=== PATIENT | female | born 2000 | race Hispanic/Latino ===

== ENCOUNTER 2018-01-04 13:59 | Emergency (ER) | payer MEDICAID ==
[2018-01-04] MEDS ORDERED: LORAZEPAM 2 MG/ML 1 ML VIAL ONE (15:00)
[2018-01-04 15:17] LABS: BASOPHILS % (AUTO) 0.9 % (0.0-5.0); EOSINOPHILS % (AUTO) 1.5 % (0.0-8.0); LYMPHOCYTES % (AUTO) 29.4 % (21.0-51.0); MEAN CORPUSCULAR HEMOGLOBIN 26.8 pg (27.0-33.0); MEAN CORPUSCULAR HGB CONC 33.2 g/dL (32.0-36.0); MEAN CORPUSCULAR VOLUME 80.6 fL (80-100); MONOCYTES % (AUTO) 6.2 % (3.0-13.0); PLATELET COUNT (AUTO) 466 K/uL (130-400); RED BLOOD CELL COUNT(AUTO) 4.97 MIL/uL (4.00-5.50); RED CELL DISTRIBUTION WIDTH 13.6 % (11.0-15.5); WHITE BLOOD COUNT (AUTO) 10.8 K/uL (4.8-10.8)
[2018-01-04 15:25] LABS: CREATININE 0.7 mg/dL (0.5-1.5)
[2018-01-04 15:30] LABS: ALBUMIN 3.6 g/dL (3.5-5.0); BILIRUBIN,TOTAL 0.2 mg/dL (0.2-1.0); TOTAL PROTEIN, SERUM 7.7 g/dL (6.0-8.3)
[2018-01-04 15:32] LABS: RAPID GROUP A STREP NEGATIVE (NEGATIVE)
[2018-01-04 15:57] LABS: BILIRUBIN,URINE Negative (NEGATIVE); COLOR,URINE Yellow (YELLOW); GLUCOSE, URINE (UA) Negative (NEGATIVE); KETONES,URINE Negative (NEGATIVE); LEUKOCYTE ESTERASE ,URINE Small (NEGATIVE); NITRATE,URINE Negative (NEGATIVE); OCCULT BLOOD,URINE Negative (NEGATIVE); PROTEIN,URINE Negative (NEGATIVE)
[2018-01-04 15:58] LABS: APPEARANCE,URINE CLOUDY (CLEAR)
[2018-01-04 16:05] LABS: AMPHET/METH SCREEN,URINE NEGATIVE (NEGATIVE); BARBITURATE SCREEN, URINE NEGATIVE (NEGATIVE); BENZODIAZEPINES SCREEN,URINE NEGATIVE (NEGATIVE); CANNABINOID SCREEN,URINE NEGATIVE (NEGATIVE); COCAINE SCREEN,URINE NEGATIVE (NEGATIVE); OPIATE SCREEN,URINE NEGATIVE (NEGATIVE); PHENCYCLIDINE SCREEN,URINE NEGATIVE (NEGATIVE)
[2018-01-04 16:08] LABS: HCG,QUAL RESULT NEGATIVE (NEGATIVE)
[2018-01-04 16:36] LABS: BACTERIA,URINE Few /HPF (None Seen); MUCUS,URINE Rare LPF (None Seen); RBC,URINE 0-1 /HPF (0-1); SQUAMOUS EPITHELIAL CELL,UR Few /LPF (0-2)
[2018-01-04 16:37] LABS: AMORPHOUS SEDIMENT,UR Few /LPF (None Seen)
== END 2018-01-04 16:27 | disposition home or self-care (01) ==
LOC: EDH 13:59
DX: R25.1 Tremor, unspecified (principal)
CPT/HCPCS: 36415; 80053; 80305; 81001; 81025; 83735; 85025; 87804 ×2; 87880; 96374; 99284; J2060

== ENCOUNTER 2018-10-09 16:55 | Inpatient (IN) | payer MEDICAID ==
[~2018-10-09] VITALS: Ht 157.5 cm; Wt 92.4 kg
[2018-10-09 17:21] LABS: EOSINOPHILS % (AUTO) 1.3 % (0.0-8.0); HEMATOCRIT 39.3 % (36-48); LYMPHOCYTES % (AUTO) 29.8 % (21.0-51.0); MEAN CORPUSCULAR HEMOGLOBIN 27.8 pg (27.0-33.0); MEAN CORPUSCULAR HGB CONC 33.4 g/dL (32.0-36.0); MEAN CORPUSCULAR VOLUME 83.4 fL (80-100); MONOCYTES % (AUTO) 5.2 % (3.0-13.0); NEUTROPHILS % (AUTO) 62.7 % (40.0-77.0); NUCLEATED RED BLOOD CELLS 0.1 % (0.0-0.19); PLATELET COUNT (AUTO) 471 K/uL (130-400); RED BLOOD CELL COUNT(AUTO) 4.72 MIL/uL (4.00-5.50); RED CELL DISTRIBUTION WIDTH 13.8 % (11.0-15.5); WHITE BLOOD COUNT (AUTO) 11.9 K/uL (4.8-10.8)
[2018-10-09] MEDS ORDERED: DiphenhydrAMINE HCL 50 MG/ML VIAL ONE (17:24)
[2018-10-09 17:32] LABS: APPEARANCE,URINE Clear (CLEAR); BILIRUBIN,URINE Negative (NEGATIVE); COLOR,URINE Yellow (YELLOW); GLUCOSE, URINE (UA) Negative (NEGATIVE); KETONES,URINE Negative (NEGATIVE); LEUKOCYTE ESTERASE ,URINE Negative (NEGATIVE); NITRATE,URINE Negative (NEGATIVE); OCCULT BLOOD,URINE Negative (NEGATIVE); PROTEIN,URINE Negative (NEGATIVE); UROBILINOGEN,URINE 0.2 mg/dL (0.2-1.0)
[2018-10-09 17:33] LABS: CREATININE 0.7 mg/dL (0.5-1.5); POTASSIUM 3.9 mmol/L (3.5-5.1)
[2018-10-09 17:38] LABS: ABG OXYGEN SATURATION 64.6 % (95.0-99.0); BASE EXCESS,VENOUS BLOOD GAS 2.5 (-2.0-3.0); HCO3,VENOUS BLOOD GAS 24.9 (21.0-28.0); PCO2,VENOUS BLOOD GAS 32 (32-45); PH,VENOUS BLOOD GAS 7.506 (7.350-7.450)
[2018-10-09 17:38] LABS: BILIRUBIN,TOTAL 0.1 mg/dL (0.2-1.0); TOTAL PROTEIN, SERUM 8.1 g/dL (6.0-8.3)
[2018-10-09 17:39] LABS: AMPHET/METH SCREEN,URINE NEGATIVE (NEGATIVE); BARBITURATE SCREEN, URINE NEGATIVE (NEGATIVE); BENZODIAZEPINES SCREEN,URINE POSITIVE (NEGATIVE); CANNABINOID SCREEN,URINE NEGATIVE (NEGATIVE); COCAINE SCREEN,URINE NEGATIVE (NEGATIVE); OPIATE SCREEN,URINE NEGATIVE (NEGATIVE); PHENCYCLIDINE SCREEN,URINE NEGATIVE (NEGATIVE)
[2018-10-09] MEDS ORDERED: IOHEXOL-350 50ML VIAL IV ONE (19:24)
[2018-10-09] MEDS ORDERED: ACETAMINOPHEN 325 MG TAB PO PRN (22:45)
[2018-10-09] MEDS ORDERED: ONDANSETRON HCL 4 MG/2 ML VIAL IV PRN (22:45)
[2018-10-09] MEDS ORDERED: CLOB10TA PO (23:42)
[2018-10-09] MEDS ORDERED: CLOB20TA PO (23:42)
[2018-10-09] MEDS ORDERED: BRIV50TA PO ×2 (23:42)
[2018-10-09] MEDS ORDERED: LAMO200T PO (23:45)
[2018-10-09 23:56] VITALS: BP 98/66
[2018-10-10] MEDS: LORAZEPAM 2 MG/ML 1 ML VIAL IVP PRN ×3 (00:18→12:41)
[2018-10-10] MEDS: SODIUM CHLORIDE 0.9% 1000ML 1,000 ML IV SCH ×3 (00:28→22:21)
[2018-10-10 04:10] VITALS: BP 87/50
[2018-10-10 06:05] LABS: BASOPHILS % (AUTO) 0.7 % (0.0-5.0); HEMATOCRIT 34.4 % (36-48); MEAN CORPUSCULAR HEMOGLOBIN 27.4 pg (27.0-33.0); MEAN CORPUSCULAR VOLUME 83.1 fL (80-100); MONOCYTES % (AUTO) 7.3 % (3.0-13.0); NUCLEATED RED BLOOD CELLS 0.1 % (0.0-0.19); PLATELET COUNT (AUTO) 342 K/uL (130-400); RED BLOOD CELL COUNT(AUTO) 4.14 MIL/uL (4.00-5.50); WHITE BLOOD COUNT (AUTO) 9.5 K/uL (4.8-10.8)
[2018-10-10 06:18] LABS: BILIRUBIN,TOTAL 0.2 mg/dL (0.2-1.0); CREATININE 0.8 mg/dL (0.5-1.5); POTASSIUM 3.9 mmol/L (3.5-5.1); TOTAL PROTEIN, SERUM 6.4 g/dL (6.0-8.3)
[2018-10-10 07:27] VITALS: BP 137/77
[2018-10-10] MEDS ORDERED: METOPROLOL TARTRATE 50 MG TAB PO SCH (09:00)
[2018-10-10] MEDS ORDERED: LAMOTRIGINE 25 MG TAB PO SCH (09:00)
[2018-10-10] MEDS: BRIVARACETAM 50 MG PO SCH ×2 (09:00→20:18)
[2018-10-10] MEDS ORDERED: CLOBAZAM PO SCH (09:00)
[2018-10-10] MEDS ORDERED: CLOBAZAM 20 MG PO SCH (09:00)
[2018-10-10] MEDS: PANTOPRAZOLE SODIUM 40 MG TABLET.DR PO SCH (09:37)
[2018-10-10] MEDS: ENOXAPARIN SODIUM 30 MG/0.3 ML SQ SCH (09:40)
[2018-10-10 11:16] VITALS: BP 106/65
[2018-10-10 16:10] VITALS: BP 116/59
[2018-10-10 19:46] VITALS: BP 100/58
[2018-10-10] MEDS: LAMOTRIGINE 200 MG TAB PO SCH (20:14)
[2018-10-10] MEDS: CLOBAZAM 20 MG PO SCH (20:16)
[2018-10-10] MEDS ORDERED: LAMOTRIGINE 50 MG PO SCH (21:00)
[2018-10-10 23:44] VITALS: BP 91/56
[2018-10-11 04:02] VITALS: BP 109/65
[2018-10-11 07:21] VITALS: BP 111/58
[2018-10-11] MEDS: PANTOPRAZOLE SODIUM 40 MG TABLET.DR PO SCH (08:43)
[2018-10-11] MEDS: ENOXAPARIN SODIUM 30 MG/0.3 ML SQ SCH (08:44)
[2018-10-11] MEDS: LAMOTRIGINE 200 MG TAB PO SCH ×2 (08:53→20:01)
[2018-10-11] MEDS: BRIVARACETAM 50 MG PO SCH ×2 (08:53→20:01)
[2018-10-11] MEDS: CLOBAZAM 20 MG PO SCH ×2 (08:53→20:01)
[2018-10-11] MEDS: SODIUM CHLORIDE 0.9% 1000ML 1,000 ML IV SCH ×2 (08:53→14:46)
[2018-10-11 11:31] VITALS: BP 121/66
[2018-10-11 16:16] VITALS: BP 101/60
[2018-10-11 20:01] VITALS: BP 91/63
[2018-10-12] VITALS (7 sets, daily range): BP systolic 92–108; BP diastolic 51–71
[2018-10-12] MEDS: SODIUM CHLORIDE 0.9% 1000ML 1,000 ML IV SCH ×3 (01:20→14:55)
[2018-10-12 03:47] LABS: ABG BASE EXCESS -3.1 mmol/L (-2.0-3.0); ABG HCO3 20.3 mmol/L (21.0-28.0); ABG OXYGEN SATURATION 97.5 % (95.0-99.0); ABG PCO2 32 mmHg (32-45)
[2018-10-12 04:09] LABS: HEMATOCRIT 33.3 % (36-48); MEAN CORPUSCULAR HEMOGLOBIN 28.2 pg (27.0-33.0); MEAN CORPUSCULAR HGB CONC 33.8 g/dL (32.0-36.0); MEAN CORPUSCULAR VOLUME 83.5 fL (80-100); PLATELET COUNT (AUTO) 374 K/uL (130-400); RED BLOOD CELL COUNT(AUTO) 3.99 MIL/uL (4.00-5.50); RED CELL DISTRIBUTION WIDTH 13.7 % (11.0-15.5); WHITE BLOOD COUNT (AUTO) 9.3 K/uL (4.8-10.8)
[2018-10-12 04:43] LABS: CREATININE 0.8 mg/dL (0.5-1.5); POTASSIUM 4.1 mmol/L (3.5-5.1); THYROID STIMULATING HORMONE 5.7 uIU/mL (0.36-3.74)
[2018-10-12] MEDS: PANTOPRAZOLE SODIUM 40 MG TABLET.DR PO SCH (08:32)
[2018-10-12] MEDS: ENOXAPARIN SODIUM 30 MG/0.3 ML SQ SCH (08:35)
[2018-10-12] MEDS: BRIVARACETAM 50 MG PO SCH ×2 (08:47→21:33)
[2018-10-12] MEDS: LAMOTRIGINE 200 MG TAB PO SCH ×2 (08:47→21:34)
[2018-10-12] MEDS: CLOBAZAM 20 MG PO SCH ×2 (08:47→21:35)
[2018-10-12] MEDS: LAMOTRIGINE 25 MG TAB PO SCH (21:35)
[2018-10-13] MEDS: SODIUM CHLORIDE 0.9% 1000ML 1,000 ML IV SCH ×4 (00:35→16:17)
[2018-10-13 03:00] VITALS: BP 103/67
[2018-10-13 08:01] VITALS: BP 97/58
[2018-10-13] MEDS: LAMOTRIGINE 25 MG TAB PO SCH (10:07)
[2018-10-13] MEDS: PANTOPRAZOLE SODIUM 40 MG TABLET.DR PO SCH (10:07)
[2018-10-13] MEDS: CLOBAZAM 20 MG PO SCH (10:11)
[2018-10-13] MEDS: LAMOTRIGINE 200 MG TAB PO SCH (10:12)
[2018-10-13] MEDS: BRIVARACETAM 50 MG PO SCH (10:13)
[2018-10-13] MEDS: ENOXAPARIN SODIUM 30 MG/0.3 ML SQ SCH (10:14)
[2018-10-13] MEDS ORDERED: LAMO25TA3 PO (11:16)
[2018-10-13] MEDS ORDERED: BRIV50TA PO (11:16)
[2018-10-13 11:45] VITALS: BP 109/64
== END 2018-10-13 17:19 | disposition home or self-care (01) | DRG 53 ==
LOC: EDH 16:55 → EDHIP 16:56 → 2AH 23:39
PROVIDERS: ADMIT Internal Medicine; ATTEND Internal Medicine
DX: G40.919 Epilepsy, unspecified, intractable, without status epilepticus (principal); E66.01 Morbid (severe) obesity due to excess calories; R00.1 Bradycardia, unspecified; G47.00 Insomnia, unspecified; G47.33 Obstructive sleep apnea (adult) (pediatric); K59.00 Constipation, unspecified; F41.9 Anxiety disorder, unspecified; F43.20 Adjustment disorder, unspecified; Z68.36 Body mass index [BMI] 36.0-36.9, adult; Z90.49 Acquired absence of other specified parts of digestive tract; Z86.011 Personal history of benign neoplasm of the brain; Z83.2 Family history of diseases of the blood and blood-forming organs and certain disorders involving the immune mechanism; Z83.3 Family history of diabetes mellitus
CPT/HCPCS: 36415; 36600; 70470; 71045; 80048; 80053; 80178; 80305; 81003; 81025; 82550; 82803; 83605; 84443; 85025; 85027; 93005; 94660; 94760; J1200; J1650; J2060; J7030; Q9967

== ENCOUNTER 2018-10-25 18:12 | Emergency (ER) | payer MEDICAID ==
[~2018-10-25 18:12] MED LIST: BRIV50TA PO; CLOB10TA PO; CLOB20TA PO; LAMO200T PO; LAMO25TA3 PO
[2018-10-25] MEDS ORDERED: MORPHINE SULFATE 4 MG/1ML SYG ONE (18:29)
[2018-10-25] MEDS ORDERED: ONDANSETRON HCL 4 MG/2 ML VIAL ONE (18:29)
[2018-10-25 19:30] LABS: CREATININE 0.8 mg/dL (0.5-1.5); POTASSIUM 3.9 mmol/L (3.5-5.1)
[2018-10-25 19:32] LABS: APPEARANCE,URINE CLEAR (CLEAR); BILIRUBIN,URINE SMALL (NEGATIVE); COLOR,URINE YELLOW (YELLOW); GLUCOSE, URINE (UA) NEGATIVE (NEGATIVE); KETONES,URINE 5 mg/dL (NEGATIVE); LEUKOCYTE ESTERASE ,URINE NEGATIVE (NEGATIVE); NITRATE,URINE NEGATIVE (NEGATIVE); OCCULT BLOOD,URINE NEGATIVE (NEGATIVE); PH,URINE 5.5 (5.0-8.0); PROTEIN,URINE TRACE (NEGATIVE); UROBILINOGEN,URINE 0.2 mg/dL (0.2-1.0)
[2018-10-25 19:32] LABS: ALBUMIN 3.9 g/dL (3.5-5.0); BILIRUBIN,TOTAL 0.1 mg/dL (0.2-1.0); TOTAL PROTEIN, SERUM 7.8 g/dL (6.0-8.3)
[2018-10-25 19:33] LABS: BASOPHILS % (AUTO) 0.6 % (0.0-5.0); EOSINOPHILS % (AUTO) 1.8 % (0.0-8.0); LYMPHOCYTES % (AUTO) 36.3 % (21.0-51.0); MEAN CORPUSCULAR HEMOGLOBIN 28.1 pg (27.0-33.0); MEAN CORPUSCULAR HGB CONC 33.2 g/dL (32.0-36.0); MEAN CORPUSCULAR VOLUME 84.4 fL (80-100); MONOCYTES % (AUTO) 6.7 % (3.0-13.0); NEUTROPHILS % (AUTO) 54.6 % (40.0-77.0); PLATELET COUNT (AUTO) 452 K/uL (130-400); RED CELL DISTRIBUTION WIDTH 14.2 % (11.0-15.5)
[2018-10-25] MEDS ORDERED: DICYCLOMINE HCL 20 MG TAB ONE (22:57)
[2018-10-25] MEDS ORDERED: KETOROLAC TROMETHAMINE 30MG/ML ONE (22:57)
[2018-10-28] MEDS ORDERED: DICY20 PO (17:37)
[2018-10-28] MEDS ORDERED: IBUP-2070 PO (17:37)
== END 2018-10-26 00:14 | disposition home or self-care (01) ==
LOC: EDH 18:12
DX: K80.20 Calculus of gallbladder without cholecystitis without obstruction (principal); R07.81 Pleurodynia
CPT/HCPCS: 36415; 71045; 76700; 80053; 81003; 82150; 83690; 84702; 85025; 93005; 96374; 96375; 99284; J1885; J2270; J2405

== ENCOUNTER 2018-10-29 09:35 | Day surgery (SDC) | payer MEDICAID ==
[2018-10-28 17:22] VITALS: BP 102/67
[2018-10-28 17:35] LABS: APPEARANCE,URINE Clear (CLEAR); BILIRUBIN,URINE Negative (NEGATIVE); COLOR,URINE Yellow (YELLOW); GLUCOSE, URINE (UA) Negative (NEGATIVE); KETONES,URINE 15 mg/dL (NEGATIVE); LEUKOCYTE ESTERASE ,URINE Negative (NEGATIVE); NITRATE,URINE Negative (NEGATIVE); OCCULT BLOOD,URINE Negative (NEGATIVE); PH,URINE 6.5 (5.0-8.0); PROTEIN,URINE Negative (NEGATIVE); UROBILINOGEN,URINE 0.2 mg/dL (0.2-1.0)
[2018-10-28 17:37] LABS: BASOPHILS % (AUTO) 0.6 % (0.0-5.0); EOSINOPHILS % (AUTO) 0.9 % (0.0-8.0); HEMATOCRIT 37.4 % (36-48); LYMPHOCYTES % (AUTO) 34.1 % (21.0-51.0); MEAN CORPUSCULAR HEMOGLOBIN 27.6 pg (27.0-33.0); MEAN CORPUSCULAR HGB CONC 32.6 g/dL (32.0-36.0); MEAN CORPUSCULAR VOLUME 84.5 fL (80-100); MONOCYTES % (AUTO) 6.3 % (3.0-13.0); NEUTROPHILS % (AUTO) 58.1 % (40.0-77.0); PLATELET COUNT (AUTO) 372 K/uL (130-400); RED BLOOD CELL COUNT(AUTO) 4.43 MIL/uL (4.00-5.50); RED CELL DISTRIBUTION WIDTH 14.1 % (11.0-15.5); WHITE BLOOD COUNT (AUTO) 8.6 K/uL (4.8-10.8)
[2018-10-28 17:55] LABS: ALANINE AMINOTRANSFERASE 19 U/L (12-78); ALBUMIN 3.9 g/dL (3.5-5.0); ASPARTATE AMINOTRANSFERASE 12 U/L (10-37); BILIRUBIN,DIRECT < 0.1 mg/dL (0.0-0.3); BILIRUBIN,TOTAL 0.2 mg/dL (0.2-1.0); TOTAL PROTEIN, SERUM 7.6 g/dL (6.0-8.3)
[2018-10-28 18:13] LABS: HCG,QUANTITATIVE 0 mIU/mL (0-5)
[2018-10-29] VITALS (14 sets, daily range): BP systolic 96–117; BP diastolic 54–73
[~2018-10-29] VITALS: Ht 157.5 cm; Wt 87.8 kg
[~2018-10-29 09:35] MED LIST changes: +CEFAZOLIN 3GM /D5W 100ML 100 ML IV SCH; +DICY20 PO; +IBUP-2070 PO; +LACTATED RINGERS 1000ML 1,000 ML IV SCH; -LAMO25TA3 PO
[2018-10-29] MEDS ORDERED: HEPARIN SODIUM 1000UNIT/ML 10ML VIAL ONE (10:10)
[2018-10-29] MEDS ORDERED: LIDOCAINE PF 2% 5ML ABBOJECT ONE ×2 (10:20→11:47)
[2018-10-29] MEDS ORDERED: SUCCINYLCHOLINE 200MG/10ML SYR ONE (10:20)
[2018-10-29] MEDS ORDERED: ROCURONIUM 10MG/1ML SYR 10 MG/ML ML ONE (10:20)
[2018-10-29] MEDS ORDERED: FENTANYL CITRATE PF 50 MCG/1 ML 5ML AMP IV ONE (10:20)
[2018-10-29] MEDS ORDERED: PROPOFOL 10 MG/ML 20ML VIAL IV ONE (10:20)
[2018-10-29] MEDS ORDERED: MEPERIDINE-PF 25 MG/ML SYG ONE (10:24)
[2018-10-29] MEDS ORDERED: MIDAZOLAM HCL 1 MG/ML 2ML VIAL ONE (10:28)
[2018-10-29] MEDS: CEFAZOLIN SODIUM 1 GM VIAL ONE ×2 (10:45→11:10)
[2018-10-29] MEDS ORDERED: SODIUM CHLORIDE 0.9% 10 ML VIAL ONE (10:59)
[2018-10-29] MEDS ORDERED: PHENYLEPHRINE HCL 10 MG/ML 1ML VIAL IV ONE (10:59)
[2018-10-29] MEDS ORDERED: EPHEDRINE SULFATE 50 MG/ML AMPULE ONE (11:00)
[2018-10-29] MEDS ORDERED: GLYCOPYRROLATE 1 MG/5 ML SYRINGE ONE (11:32)
[2018-10-29] MEDS ORDERED: NEOSTIGMINE 5MG/5ML SYR IV ONE (11:33)
[2018-10-29] MEDS ORDERED: KETOROLAC TROMETHAMINE 30MG/ML ONE (11:34)
[2018-10-29] MEDS ORDERED: ONDANSETRON HCL 4 MG/2 ML VIAL ONE (11:34)
[2018-10-29] MEDS ORDERED: FENTANYL CITRATE PF 50 MCG/1 ML 2ML VIAL ONE (12:18)
== END 2018-10-29 13:55 | disposition home or self-care (01) ==
LOC: DAH 09:35
PROVIDERS: ATTEND Surgery
DX: K80.10 Calculus of gallbladder with chronic cholecystitis without obstruction (principal); F41.9 Anxiety disorder, unspecified; G40.909 Epilepsy, unspecified, not intractable, without status epilepticus; E66.9 Obesity, unspecified; Z98.890 Other specified postprocedural states; Z79.899 Other long term (current) drug therapy; Z83.3 Family history of diabetes mellitus; Z80.3 Family history of malignant neoplasm of breast; Z68.35 Body mass index [BMI] 35.0-35.9, adult
CPT/HCPCS: 36415; 47562; 80076; 81003; 84702; 85025; 88304; A4450; C1769 ×4; J0330; J0690; J1644; J1885; J2001 ×2; J2250; J2405; J2704; J2710; J3010 ×2; J3490 ×2; J7030; J7120 ×2; J2175; J2370

== ENCOUNTER 2018-11-27 16:48 | Emergency (ER) | payer MEDICAID ==
[~2018-11-27 16:48] MED LIST changes: -CEFAZOLIN 3GM /D5W 100ML 100 ML IV SCH; -LACTATED RINGERS 1000ML 1,000 ML IV SCH
[2018-11-27 17:55] LABS: BASOPHILS % (AUTO) 0.8 % (0.0-5.0); HEMATOCRIT 39.1 % (36-48); LYMPHOCYTES % (AUTO) 37.8 % (21.0-51.0); MEAN CORPUSCULAR HGB CONC 33.8 g/dL (32.0-36.0); MEAN CORPUSCULAR VOLUME 82.8 fL (80-100); MONOCYTES % (AUTO) 6.7 % (3.0-13.0); NEUTROPHILS % (AUTO) 51.7 % (40.0-77.0); PLATELET COUNT (AUTO) 435 K/uL (130-400); RED BLOOD CELL COUNT(AUTO) 4.72 MIL/uL (4.00-5.50); RED CELL DISTRIBUTION WIDTH 14.6 % (11.0-15.5); WHITE BLOOD COUNT (AUTO) 10.1 K/uL (4.8-10.8)
[2018-11-27] MEDS ORDERED: ONDANSETRON HCL 4 MG/2 ML VIAL ONE (18:07)
[2018-11-27] MEDS ORDERED: MORPHINE SULFATE 4 MG/1ML SYG ONE (18:08)
[2018-11-27 18:12] LABS: APPEARANCE,URINE Clear (CLEAR); BILIRUBIN,URINE Negative (NEGATIVE); COLOR,URINE Yellow (YELLOW); GLUCOSE, URINE (UA) Negative (NEGATIVE); KETONES,URINE Negative (NEGATIVE); LEUKOCYTE ESTERASE ,URINE Negative (NEGATIVE); NITRATE,URINE Negative (NEGATIVE); OCCULT BLOOD,URINE Negative (NEGATIVE); PROTEIN,URINE Negative (NEGATIVE); UROBILINOGEN,URINE 0.2 mg/dL (0.2-1.0)
[2018-11-27 18:14] LABS: CREATININE 0.7 mg/dL (0.5-1.5); POTASSIUM 3.9 mmol/L (3.5-5.1)
[2018-11-27 18:16] LABS: HCG,QUAL RESULT NEGATIVE (NEGATIVE)
[2018-11-27 18:19] LABS: ALBUMIN 3.7 g/dL (3.5-5.0); BILIRUBIN,TOTAL 0.1 mg/dL (0.2-1.0); TOTAL PROTEIN, SERUM 7.7 g/dL (6.0-8.3)
[2018-11-27] MEDS ORDERED: LIDOCAINE HCL 2% VISCOUS 15 ML UDCUP ONE (20:26)
[2018-11-27] MEDS ORDERED: MAG HYDROX/AL HYDROX/SIMETH ES 30 ML SUSP UDCUP ONE (20:26)
== END 2018-11-27 20:44 | disposition home or self-care (01) ==
LOC: EDH 16:48
DX: K29.00 Acute gastritis without bleeding (principal); Z98.890 Other specified postprocedural states
CPT/HCPCS: 36415; 80053; 81003; 81025; 83690; 85025; 86677; 96374; 96375; 99283; J2270; J2405

== ENCOUNTER 2019-01-06 08:31 | Emergency (ER) | payer MEDICAID ==
[2019-01-06 09:35] LABS: APPEARANCE,URINE Turbid (CLEAR); BILIRUBIN,URINE Negative (NEGATIVE); COLOR,URINE Dark Yellow (YELLOW); GLUCOSE, URINE (UA) Negative (NEGATIVE); KETONES,URINE Trace mg/dL (NEGATIVE); LEUKOCYTE ESTERASE ,URINE Small (NEGATIVE); NITRATE,URINE Negative (NEGATIVE); OCCULT BLOOD,URINE Negative (NEGATIVE); PH,URINE 5.5 (5.0-8.0); PROTEIN,URINE Trace (NEGATIVE)
[2019-01-06 09:36] LABS: HCG,QUAL RESULT NEGATIVE (NEGATIVE)
[2019-01-06 09:38] LABS: BACTERIA,URINE Rare /HPF (None Seen); MUCUS,URINE Many LPF (None Seen); RBC,URINE 0-1 /HPF (0-1); SQUAMOUS EPITHELIAL CELL,UR Moderate /HPF (0-2); WBC,URINE 0-1 /HPF (0-1)
[2019-01-06] MEDS ORDERED: KETOROLAC TROMETHAMINE 60 MG/2 ML VIAL ONE (09:41)
[2019-01-06] MEDS ORDERED: MAGNESIUM CITRATE 296 ML SOLUTION ONE (11:24)
== END 2019-01-06 11:36 | disposition home or self-care (01) ==
LOC: EDH 08:31
DX: K59.00 Constipation, unspecified (principal); N83.299 Other ovarian cyst, unspecified side
CPT/HCPCS: 74021; 76856; 81001; 81025; 96372; 99284; J1885

== ENCOUNTER 2019-09-26 12:29 | Emergency (ER) | payer MEDICAID | END 2019-09-26 13:51 | disposition home or self-care (01) | LOC: EDH 12:29 | DX: S50.02XA Contusion of left elbow, initial encounter (principal); Z79.899 Other long term (current) drug therapy; Z90.49 Acquired absence of other specified parts of digestive tract; Z98.890 Other specified postprocedural states; W18.39XA Other fall on same level, initial encounter; Y93.89 Activity, other specified; Y92.098 Other place in other non-institutional residence as the place of occurrence of the external cause; Y99.8 Other external cause status | CPT/HCPCS: 73080 ==

== ENCOUNTER 2019-12-09 13:02 | Emergency (ER) | payer MEDICAID ==
[2019-12-09] MEDS ORDERED: LORAZEPAM 2 MG/ML 1 ML VIAL ONE (13:34)
[2019-12-09 13:43] LABS: BASOPHILS % (AUTO) 0.8 % (0.0-5.0); EOSINOPHILS % (AUTO) 1.4 % (0.0-8.0); HEMATOCRIT 40.8 % (36-48); LYMPHOCYTES % (AUTO) 21.3 % (21.0-51.0); MEAN CORPUSCULAR HEMOGLOBIN 26.9 pg (27.0-33.0); MEAN CORPUSCULAR HGB CONC 31.9 g/dL (32.0-36.0); MEAN CORPUSCULAR VOLUME 84.5 fL (80-100); MONOCYTES % (AUTO) 7.4 % (3.0-13.0); NEUTROPHILS % (AUTO) 68.8 % (40.0-77.0); PLATELET COUNT (AUTO) 393 K/uL (130-400); RED BLOOD CELL COUNT(AUTO) 4.83 MIL/uL (4.00-5.50); RED CELL DISTRIBUTION WIDTH 12.7 % (11.0-15.5); WHITE BLOOD COUNT (AUTO) 7.6 K/uL (4.8-10.8)
[2019-12-09 13:50] LABS: CREATININE 0.7 mg/dL (0.5-1.5); POTASSIUM 4.1 mmol/L (3.5-5.1)
[2019-12-09 13:55] LABS: ALBUMIN 3.5 g/dL (3.5-5.0); BILIRUBIN,TOTAL 0.2 mg/dL (0.2-1.0); TOTAL PROTEIN, SERUM 7.4 g/dL (6.0-8.3)
== END 2019-12-09 16:28 | disposition home or self-care (01) ==
LOC: EDH 13:02
DX: R56.9 Unspecified convulsions (principal); Z79.899 Other long term (current) drug therapy
CPT/HCPCS: 36415; 80053; 85025; 96374; 99284; J2060

== ENCOUNTER 2022-12-19 21:07 | Emergency (ER) | payer MEDICAID ==
[~2022-12-19] VITALS: Ht 157.5 cm; Wt 117.0 kg
[~2022-12-19 21:07] MED LIST changes: -DICY20 PO; +DICY20TA2 PO
[2022-12-19 21:31] VITALS: BP 108/73
[2022-12-19] MEDS ORDERED: IBUP-2070 PO (23:06)
== END 2022-12-19 23:19 | disposition home or self-care (01) ==
LOC: EDH 21:07
DX: S93.402A Sprain of unspecified ligament of left ankle, initial encounter (principal); F41.9 Anxiety disorder, unspecified; F32.9 Major depressive disorder, single episode, unspecified; R56.9 Unspecified convulsions; Z79.899 Other long term (current) drug therapy; X50.1XXA Overexertion from prolonged static or awkward postures, initial encounter; Y93.01 Activity, walking, marching and hiking; Y92.513 Shop (commercial) as the place of occurrence of the external cause; Y99.8 Other external cause status
CPT/HCPCS: 73610; 73630